=== PATIENT | male | born 1970 | race Two or more races ===

== ENCOUNTER → 2017-06-08 | Emergency (ER) | payer OTHER ==
[~2017-06-08] VITALS: Ht 170.2 cm; Wt 117.0 kg
[~2017-06-08] MED LIST: LEVAQUIN750 MG PO; MUPIROCIN22 GM TOP
== END | disposition home or self-care (01) ==
LOC: ER 21:30
DX: L08.89 Other specified local infections of the skin and subcutaneous tissue (principal)

== ENCOUNTER 2017-09-29 07:18 | Outpatient (CLI) | payer OTHER | END 2017-09-29 07:27 | disposition home or self-care (01) | LOC: SONOGRAMA 07:18 | DX: K76.9 Liver disease, unspecified (principal); R10.9 Unspecified abdominal pain; E03.8 Other specified hypothyroidism ==

== ENCOUNTER 2017-11-21 12:56 | Outpatient (CLI) | payer OTHER | END 2017-11-21 13:04 | disposition home or self-care (01) | LOC: RAD 12:56 | DX: M25.512 Pain in left shoulder (principal); M25.511 Pain in right shoulder; M54.2 Cervicalgia ==

== ENCOUNTER 2018-01-08 12:31 | Outpatient (CLI) | payer OTHER | END 2018-01-08 12:39 | disposition home or self-care (01) | LOC: RAD 12:31 | DX: Z01.810 Encounter for preprocedural cardiovascular examination (principal) ==

== ENCOUNTER 2021-12-03 11:08 | Outpatient (CLI) | payer OTHER | END 2021-12-03 11:31 | disposition home or self-care (01) | LOC: RAD 11:08 | PROVIDERS: ATTEND Orthopaedic Surgery Sports Medicine | DX: M23.222 Derangement of posterior horn of medial meniscus due to old tear or injury, left knee (principal) | CPT/HCPCS: 73721 ==

== ENCOUNTER 2022-04-08 08:15 | Outpatient (CLI) | payer OTHER | END 2022-04-08 08:45 | disposition home or self-care (01) | LOC: LAB 08:15 | DX: R06.89 Other abnormalities of breathing (principal); I10 Essential (primary) hypertension; R79.1 Abnormal coagulation profile ==

== ENCOUNTER 2024-05-21 14:27 | Outpatient (CLI) | payer OTHER | END 2024-05-21 14:51 | disposition home or self-care (01) | LOC: MRI 14:27 | PROVIDERS: ATTEND Orthopaedic Surgery Sports Medicine | DX: M23.222 Derangement of posterior horn of medial meniscus due to old tear or injury, left knee (principal) | CPT/HCPCS: 73721 ==

== ENCOUNTER 2024-07-25 15:08 | Outpatient (CLI) | payer OTHER ==
[~2024-07-25 15:08] MED LIST changes: +DICLOFENAC POTA50 MG PO
== END 2024-07-25 15:17 | disposition home or self-care (01) ==
LOC: RAD 15:08
DX: R91.8 Other nonspecific abnormal finding of lung field (principal); Z13.83 Encounter for screening for respiratory disorder NEC

== ENCOUNTER 2024-09-10 10:01 | Outpatient (CLI) | payer OTHER | END 2024-09-10 10:10 | disposition home or self-care (01) | LOC: RAD 10:01 | PROVIDERS: ATTEND Orthopaedic Surgery Sports Medicine | DX: M17.12 Unilateral primary osteoarthritis, left knee (principal); Z96.652 Presence of left artificial knee joint ==